=== PATIENT | male | born 1970 | race Caucasian/White ===

== ENCOUNTER 2017-12-27 14:26 | Emergency (ER) | payer OTHER ==
[2017-12-27 14:35] VITALS: BP 131/77
[2017-12-27] MEDS ORDERED: IBUPROFEN 800 MG TABLET PO ONE (15:34)
--- NOTE | 2017-12-27 15:34 | ER Document Report ---
HPI - HPI Patient complains to provider of: Puncture wound to thumb Onset: Other - 3 days Quality of pain: Sharp Pain Level: 4 Context: Patient states that he was pulling weeds out 3 days ago and got some thorns in his right thumb. Patient states that he went to his doctor's office today and his doctor numbed up his thumb and removed some plant matter. Patient states that his doctor sent him here to have x-rays performed to rule out any potential retained foreign body. Associated Symptoms: Other - puncture wound to thumb Exacerbated by: Movement Relieved by: Denies Similar symptoms previously: No Recently seen / treated by doctor: Yes - ROS ROS below otherwise negative: Yes Systems Reviewed and Negative: Yes All other systems reviewed and negative - CONSTITUTIONAL Constitutional: DENIES: Fever, Chills - NEURO Neurology: DENIES: Weakness - MUSCULOSKELETAL Musculoskeletal: REPORTS: Extremity pain - DERM Skin Color: Erythema Skin Problems: Puncture Wound Past Medical History - General Information source: Patient - Social History Smoking Status: Current Every Day Smoker Chew tobacco use (# tins/day): No Smoking Education Provided: Yes Frequency of alcohol use: None Drug Abuse: None Occupation: [employer] Family History: Reviewed & Not Pertinent Patient has suicidal ideation: No Patient has homicidal ideation: No - Past Medical History Cardiac Medical History: Reports: Hx Hypercholesterolemia Renal/ Medical History: Denies: Hx Peritoneal Dialysis Surgical Hx: Negative Vertical Provider Document - CONSTITUTIONAL Agree With Documented VS: Yes Exam Limitations: No Limitations General Appearance: WD/WN, No Apparent Distress Notes: Patient with very exaggerated pain response with minimal palpation of finger. - INFECTION CONTROL TRAVEL OUTSIDE OF THE [place] IN LAST 30 DAYS: No - HEENT HEENT: Atraumatic, Normocephalic - NECK Neck: Normal Inspection - RESPIRATORY Respiratory: Breath Sounds Normal, No Respiratory Distress - CARDIOVASCULAR Cardiovascular: Regular Rate, Regular Rhythm Pulses: Normal: Radial - MUSCULOSKELETAL/EXTREMETIES Musculoskeletal/Extremeties: MAEW, FROM, Tender - Right thumb tenderness the palmar surface overlying the distal phalanx, Edema - Trace edema to the pad of thumb with overlying puncture wound - NEURO Level of Consciousness: Awake, Alert, Appropriate Motor/Sensory: No Motor Deficit Notes: No tendon deficit - DERM Notes: Puncture wound to the pad of right thumb Course - Re-evaluation Re-evalutation: 12/27/17 15:33 Spoke with nurse at the [facility] who states that patient can return to their office after he is discharged from the ER to obtain his prescriptions if needed. RN advised that patient will likely need orthopedic hand specialty follow-up. 12/27/17 16:[address] Boyer regarding patient presentation, agrees with diagnostic evaluation. Recommends treating with clindamycin at this time. 12/27/17 18:[address] Pan regarding patient presentation and concern about retained foreign body in the thumb. Agrees to see patient first thing in the morning at 8 AM. - Vital Signs Vital signs: Temp Pulse Resp BP Pulse Ox 98.2 F 63 18 131/77 H 97 12/27/17 14:34 12/27/17 14:34 12/27/17 14:34 12/27/17 14:34 12/27/17 14:34 - Diagnostic Test Radiology reviewed: Reports reviewed Discharge - Discharge Clinical Impression: Retained foreign body Puncture wound of thumb Qualifiers: Encounter type: initial encounter Laterality: right Qualified Code(s): S61.031A - Puncture wound without foreign body of right thumb without damage to nail, initial encounter Condition: Stable Disposition: HOME, SELF-CARE Instructions: Clindamycin ([facility]), Retained Subcutaneous Foreign Object ([facility]) Additional Instructions: Return immediately for any new or worsening symptoms Followup with your primary care provider, call tomorrow to make a followup appointment Follow-up with Dr. Pan, the orthopedic surgeon tomorrow morning in his office at 8 AM. Prescriptions: Clindamycin HCl [Cleocin Hcl] 300 mg PO QID #28 capsule Naproxen [Naprosyn 250 Nmg Tablet] 1 tab PO BID #14 tablet Forms: Return to Work Referrals: VINAYAK SINGH MD [Primary Care Provider] - Follow up as needed BELEM PAN MD [ACTIVE STAFF] - Follow up tomorrow
--- NOTE | 2017-12-27 15:56 | RADIOLOGY REPORT (SQ) ---
EXAM DESCRIPTION: FINGER RIGHT COMPLETED DATE/TIME: 12/27/2017 3:45 pm REASON FOR STUDY: PW to r thumb, ?FB COMPARISON: None. NUMBER OF VIEWS: Three views. TECHNIQUE: AP, lateral, and oblique images acquired of the right thumb. LIMITATIONS: None. FINDINGS: MINERALIZATION: Normal. BONES: No acute fracture or dislocation. No worrisome bone lesions. SOFT TISSUES: No soft tissue swelling. No foreign body. OTHER: No other significant finding. IMPRESSION: NO RADIOGRAPHIC EVIDENCE OF ACUTE INJURY. COMMENT: SITE OF TRAUMA/COMPLAINT MARKED/STAMP COMPLETED: YES. TECHNICAL DOCUMENTATION: JOB ID: [id number] [employer]- All Rights Reserved Reading location - IP/workstation name: [email or web address]
--- NOTE | 2017-12-27 18:16 | RADIOLOGY REPORT (SQ) ---
EXAM DESCRIPTION: U/S EXTREMITY NONVASCULAR LTD COMPLETED DATE/TIME: 12/27/2017 5:50 pm REASON FOR STUDY: PW to r thumb, ?FB COMPARISON: None. TECHNIQUE: Dynamic and static grayscale images acquired of the localized site of clinical concern an d recorded on PACS. Additional selected color Doppler and spectral images recorded. SITE OF CONCERN: Right thumb LIMITATIONS: None. FINDINGS: SKIN AND SUBCUTANEOUS TISSUES: A linear radiopaque foreign body is present that measures 6 mm in length. DEEP SOFT TISSUES/MUSCLES: No masses. No fluid collections. No edema. VASCULAR: No increased or decreased vascularity. No occlusions. OTHER: No other significant finding. IMPRESSION: Linear radiopaque foreign body is present. TECHNICAL DOCUMENTATION: JOB ID: [id number] [employer]- All Rights Reserved Reading location - IP/workstation name: [email or web address]
[2017-12-27] MEDS ORDERED: HYDROCODONE/ACETAMINOPHEN 5-325 MG (6 TAB/ER DISP) PO PRN (18:33)
[2017-12-27] MEDS ORDERED: CLINDAMYCIN HCL 150 MG CAPSULE PO ONE (18:34)
[2017-12-27] MEDS ORDERED: DIPH/PERTUSS(ACELL)/TETANUS VAC/PF 0.5 ML SYR (>=10YO) IM ONE (18:47)
== END 2017-12-27 19:15 | disposition home or self-care (01) ==
LOC: ER 14:26
DX: S61.041A Puncture wound with foreign body of right thumb without damage to nail, initial encounter (principal); X58.XXXA Exposure to other specified factors, initial encounter
CPT/HCPCS: 76882; 90715; 99283

== ENCOUNTER 2017-12-29 05:20 | Day surgery (SDC) | payer OTHER ==
[2017-12-29] MEDS ORDERED: BACITRACIN INJ 50,000 UNIT VIAL ONE (06:30)
--- NOTE | 2017-12-29 06:31 | RADIOLOGY REPORT (SQ) ---
EXAM DESCRIPTION: X-ray single view chest CLINICAL HISTORY: 47 years Male, preop COMPARISON: None. TECHNIQUE: Single portable view of the chest FINDINGS: The lungs are well expanded and are clear. There is no evidence of a pneumothorax. The cardiac silhouette is normal in size and configuration. The mediastinal contours are normal. No acute osseous abnormality is identified. No focal soft tissue abnormalities are seen. IMPRESSION: No evidence of acute intrathoracic disease.
[2017-12-29 06:34] LABS: APPEARANCE,URINE CLEAR; BILIRUBIN,URINE NEGATIVE (NEGATIVE); COLOR,URINE YELLOW; GLUCOSE, URINE NEGATIVE (NEGATIVE); KETONES,URINE NEGATIVE (NEGATIVE); LEUKOCYTE ESTERASE,URINE NEGATIVE (NEGATIVE); NITRITE,URINE NEGATIVE (NEGATIVE); PROTEIN,URINE NEGATIVE (NEGATIVE); URINE SPECIFIC GRAVITY 1.021; UROBILINOGEN,URINE NEGATIVE mg/dL (<2.0)
[2017-12-29] MEDS ORDERED: LIDOCAINE 1% INJ-PF (10 MG/ML) 30 ML SDV ONE (06:57)
[2017-12-29] MEDS ORDERED: BUPIVACAINE HCL 0.5 % INJ/PF 30 ML SDV ONE (06:57)
[2017-12-29 07:03] LABS: ANION GAP 14 (5-19); BLOOD UREA NITROGEN 16 mg/dL (7-20); CALCIUM 9.5 mg/dL (8.4-10.2); CARBON DIOXIDE 25 mmol/L (22-30); CHLORIDE 105 mmol/L (98-107); GLUCOSE 95 mg/dL (75-110); POTASSIUM 4.6 mmol/L (3.6-5.0); SODIUM 143.5 mmol/L (137-145)
[2017-12-29] MEDS ORDERED: FENTANYL CITRATE INJ/PF 100 MCG/2 ML AMPUL ONE (07:04)
[2017-12-29] MEDS ORDERED: MIDAZOLAM 2 MG/2 ML INJ ONE (07:04)
[2017-12-29] MEDS ORDERED: KETAMINE HCL INJ 500 MG/10 ML VIAL ONE (07:05)
[2017-12-29] MEDS ORDERED: PROPOFOL INJ 200 MG/20 ML VIAL IV ONE (07:05)
[2017-12-29] MEDS ORDERED: MEPERIDINE HCL/PF INJ 25 MG/1 ML DISP.SYRIN IV PRN (07:26)
[2017-12-29] MEDS ORDERED: OXYCODONE-ACETAMINOPHEN 5-325 MG TABLET PO PRN ×2 (07:26)
[2017-12-29] MEDS ORDERED: FENTANYL CITRATE INJ/PF 100 MCG/2 ML AMPUL IV PRN ×3 (07:26)
[2017-12-29] MEDS ORDERED: PROMETHAZINE HCL INJ 25 MG/1 ML VIAL IV PRN ×2 (07:26)
[2017-12-29] MEDS ORDERED: DIPHENHYDRAMINE HCL 50 MG/ML VIAL IV PRN (07:26)
--- NOTE | 2017-12-29 07:40 | Discharge Summary ---
Discharge Summary ([facility]) - Discharge Final Diagnosis: Foreign body right thumb Date of Surgery: 12/29/17 Discharge Date: 12/29/17 Condition: Good Treatment or Instructions: Keep dressing dry and intact Prescriptions: Hydrocodone/Acetaminophen [D[place] 5-325 mg Tablet] 1 tab PO Q6 PRN #40 tablet PRN Reason: Referrals: TYRONE LAL MD [Primary Care Provider] - Discharge Diet: As Tolerated, Regular Discharge Activity: Activity As Tolerated Home Care Assistance: None Needed Report the Following to Your Physician Immediately: Shortness of Breath, Fever over 101 Degrees, Drainage-Foul Smelling
--- NOTE | 2017-12-29 07:42 | Operative Report ---
Operative Report DATE OF SURGERY: 12/29/17 PREOPERATIVE DIAGNOSIS: Foreign body right thumb OPERATION: I&D right thumb removal of foreign body SURGEON: BELEM FAIRCHILD ANESTHESIA: LMAC TISSUE REMOVED OR ALTERED: Foreign body to pathology ESTIMATED BLOOD LOSS: Minimal PROCEDURE: With the patient supine Afrin table the right upper extremities prepped and draped in sterile fashion. A digital block is placed to the right thumb using a 25-gauge needle and half percent lidocaine. Subsequently longitudinal incisions made over the tuft of the right thumb in line with the easily identified puncture wound. Hemostat was used to spread and subsequently retrieved a large amount of what appears to be plant material from the thumb. It subsequently irrigated with bulb lavage. A single nylon sutures placed. Compressive dressings applied. The patient's return to the PACU in satisfactory condition.
[2017-12-29 07:58] LABS: HEMATOCRIT 45.7 % (37.9-51.0); MEAN CORPUSCULAR HEMOGLOBIN 32.6 pg (27.0-33.4); MEAN CORPUSCULAR HGB CONC 35.1 g/dL (32.0-36.0); MEAN CORPUSCULAR VOLUME 93 fl (80-97); PLATELET COUNT 193 10^3/uL (150-450); RED BLOOD COUNT 4.91 10^6/uL (4.35-5.55); RED CELL DISTRIBUTION WIDTH 13.2 % (11.5-14.0); WHITE BLOOD COUNT 6.9 10^3/uL (4.0-10.5)
--- NOTE | 2017-12-29 09:02 | EKG REPORT ---
SEVERITY:- NORMAL ECG - SINUS BRADYCARDIA : Confirmed by: Zenaida Zapata 29-Dec-2017 09:01:43
[2017-12-29] MEDS ORDERED: ONDANSETRON 4 MG TAB.RAPDIS ONE (09:12)
[2017-12-29 09:25] VITALS: BP 115/69
== END 2017-12-29 09:15 | disposition home or self-care (01) ==
LOC: OROUT 05:20
PROVIDERS: ATTEND Orthopaedic Surgery
DX: M79.5 Residual foreign body in soft tissue (principal)
CPT/HCPCS: 36415; 85027; 80048; 81001; 88304 ×2; 71045; 93005; 93010; 20520; J2250; J3490 ×4; S0119; J3010; J2704; 400

== ENCOUNTER → 2018-06-25 | Outpatient (CLI) | payer OTHER ==
--- NOTE | 2018-06-25 13:56 | RADIOLOGY REPORT (SQ) ---
EXAM DESCRIPTION: BARIUM SWALLOW ESOPHAGUS COMPLETED DATE/TIME: 06/25/2018 8:33 am REASON FOR STUDY: DYSPHAGIA (R13.19) R13.19 OTHER DYSPHAGIA COMPARISON: AP chest 12/29/2017 TECHNIQUE: Under fluoroscopic guidance, patient ingested effervescent granules followed by thick and thin barium. Fluoroscopic spot images and routine radiographic images acquired and stored on PACS. 12 MM BARIUM TABLET GIVEN: Yes No significant delay in passage. LIMITATIONS: None. FLUOROSCOPY TIME: FLUORO TIME: 1 minutes 4 seconds 10 series of digital fluoroscopic images saved to PACS. FINDINGS: NEUROMUSCULAR COORDINATION OF SWALLOW: Normal. No aspiration. Less than 1 cm Zenker's div erticulum is present in the cervical esophagus ESOPHAGEAL MOTILITY: Normal peristalsis. No esophageal spasm. ESOPHAGEAL MUCOSA: Normal mucosa without masses or ulceration. GASTRO-ESOPHAGEAL JUNCTION: Small sliding hiatal hernia. No distal esophageal mucosal abnormality is or stricture. No Schatzki's ring. Unprovoked gastroesophageal reflux to the mid 3rd of the esophag us NON-GI TRACT STRUCTURES: No significant finding. OTHER: No other significant finding. IMPRESSION: Small sliding hiatal hernia with gastroesophageal reflux COMMENT: Quality ID [id number]: Final reports for procedures using fluoroscopy that document radiation exp osure indices, or exposure time and number of fluorographic images (if radiation exposure indices are not available) TECHNICAL DOCUMENTATION: JOB ID: [id number] [employer]- All Rights Reserved Reading location - IP/workstation name: [email or web address]
== END ==
LOC: RAD 07:44
PROVIDERS: ATTEND Family Medicine
DX: R13.19 Other dysphagia (principal)
CPT/HCPCS: 74220